=== PATIENT | male | born 1960 | race Caucasian/White ===

== ENCOUNTER → 2024-08-11 12:40 | Outpatient (REF) | payer MEDICARE, SELFPAY | LOC: RAD 12:40 | PROVIDERS: ATTENDING PHYSICIAN Physician Assistant | DX: R74.8 Abnormal levels of other serum enzymes (principal) | CPT/HCPCS: 76700 ==

== ENCOUNTER → 2024-09-15 09:59 | Outpatient (REF) | payer MEDICARE, SELFPAY | LOC: RAD 09:59 | PROVIDERS: ATTENDING PHYSICIAN Physician Assistant | DX: E78.2 Mixed hyperlipidemia (principal); M25.511 Pain in right shoulder | CPT/HCPCS: 73030 ==